=== PATIENT | female | born 1950 | race Caucasian/White ===

== ENCOUNTER 2017-08-05 13:06 | Emergency (ER) | payer MEDICARE, OTHER ==
[2017-08-05] MEDS ORDERED: Diphtheria,Pertussis(Acell),Tetanus Vaccine 0.5 ML Syringe IM ONE (13:25)
--- NOTE | 2017-08-05 13:52 | EDM.PDOC ---
ED HPI GENERAL MEDICAL PROBLEM - General Stated Complaint: CUT RIGHT MIDDLE FINGER Time Seen by Provider: 08/05/17 13:15 Source of Information: Reports: Patient History Limitations: Reports: No Limitations - History of Present Illness INITIAL COMMENTS - FREE TEXT/NARRATIVE: Patient comes into the emergency department today with complaint of laceration to her finger. [place] finger became pinched between the bracket. This caused a laceration to the right ring finger. Patient was able to control the bleeding prior to arrival. She states she is able to move it without numbness or tingling. The only pain and discomfort is were the laceration has occurred. Patient denies any dizziness numbness tingling nausea vomiting. Her last known tetanus is greater than 5 years. Onset: Today, Sudden Location: Reports: Upper Extremity, Right Quality: Reports: Throbbing Severity: Moderate Right 4-Ring finger Pain Score (Numeric/FACES): 9 - Related Data Allergies Allergy/AdvReac Type Severity Reaction Status Date / Time No Known Allergies Allergy Verified 08/05/17 13:32 Home Meds: Home Meds Escitalopram [Lexapro] 20 mg PO DAILY 08/05/17 [History] Omeprazole 20 mg PO DAILY 08/05/17 [History] Past Medical History Psychiatric History: Reports: Depression Social & Family History - Tobacco Use Smoking Status *Q: Never Smoker - Recreational Drug Use Recreational Drug Use: No Review of Systems - Review of Systems Review Of Systems: See Below Constitutional: Reports: No Symptoms Ears: Reports: No Symptoms Nose: Reports: No Symptoms Mouth/Throat: Reports: No Symptoms Respiratory: Reports: No Symptoms Cardiovascular: Reports: No Symptoms GI/Abdominal: Reports: No Symptoms ED EXAM, GENERAL - Physical Exam Exam: See Below Exam Limited By: No Limitations General Appearance: Alert, WD/WN, No Apparent Distress Respiratory/Chest: No Respiratory Distress, No Accessory Muscle Use Cardiovascular: Normal Peripheral Pulses, Regular Rate, Rhythm Peripheral Pulses: 2+: Radial (L), Radial (R) Extremities: Other (right hand ring finger- laceration 0.5 in linear along lateral nail. The nail bed is intact with no mobility noted. No blood noted under the nail at this time. CMS intact, ROM intact. Bleeding minimal) Neurological: Alert, Oriented, Normal Gait, Normal Reflexes Psychiatric: Normal Affect, Normal Mood Skin Exam: Warm, Dry ED TRAUMA EXTREMITY PROCEDURES - Laceration/Wound Repair Right Lateral Finger Appearance: Subcutaneous Distal NVT: Neuro & Vascular Intact, No Tendon Injury Anesthetic Type: Local Local Anesthesia - Lidocaine (Xylocaine): 1% Plain Local Anesthetic Volume: 3cc Skin Prep: Chlorhexidine (Hibiciens), Saline, Sterile Drape Exploration/Debridement/Repair: Wound Explored Closed With: Sutures Suture Size: 4-0 # of Sutures: 4 Suture Type: Simple Drain Placement: No Sterile Dressing Applied: Nurse Tetanus Status Addressed: Yes Complications: No Course - Vital Signs Last Recorded V/S: Last Vital Signs Temp 36.3 C 08/05/17 13:10 Pulse 80 08/05/17 13:10 Resp 18 08/05/17 13:10 BP 161/81 H 08/05/17 13:10 Pulse Ox 96 08/05/17 13:10 - Orders/Labs/Meds Orders: Active Orders 24 hr Category Date Time Status Vaccines to be Administered [RC] PER UNIT ROUTINE Care 08/05/17 13:26 Active Meds: Medications Discontinued Medications Generic Name Dose Route Start Last Admin Trade Name Yan PRN Reason Stop Dose Admin Diphtheria/Tetanus/Acell Pertussis 0.5 ml 08/05/17 13:25 08/05/17 13:57 Adacel IM 08/05/17 13:26 0.5 ml .ONCE ONE Administration Lidocaine HCl 5 ml 08/05/17 13:21 08/05/17 13:25 Xylocaine-Mpf 1% INJECT 08/05/17 13:22 5 ml ONETIME ONE Administration Departure - Departure Time of Disposition: 13:50 Disposition: Home, Self-Care 01 Condition: Good Clinical Impression: Laceration - Discharge Information Instructions: Laceration Care, Adult Additional Instructions: 1. rest 2. Keep the area dry 3. Follow up in your PCP in 10 days to have sutures removed 4. Cover hand when outdoors or working with any soiled items 5. If pressure begins to build under the nail you may need to follow up and have it drained. 6. Return with any signs or symptoms of infection 7. Activity and diet as tolerated - My Orders Last 24 Hours: My Active Orders 08/05/17 13:26 Vaccines to be Administered [RC] PER UNIT ROUTINE - Assessment/Plan Last 24 Hours: My Active Orders 08/05/17 13:26 Vaccines to be Administered [RC] PER UNIT ROUTINE
== END 2017-08-05 14:01 | disposition home or self-care (01) ==
LOC: VM.ED 13:06
DX: S61.212A Laceration without foreign body of right middle finger without damage to nail, initial encounter (principal); F32.9 Major depressive disorder, single episode, unspecified; Z23 Encounter for immunization; Z79.899 Other long term (current) drug therapy; W23.0XXA Caught, crushed, jammed, or pinched between moving objects, initial encounter
CPT/HCPCS: 12001; 90471; 90715; 99283; 99283-GF-25